=== PATIENT | female | born 1990 | race Caucasian/White ===

== ENCOUNTER 2018-06-19 11:52 | Emergency (ER) | payer MEDICAID ==
[~2018-06-19] VITALS: Ht 149.9 cm; Wt 112.9 kg
[2018-06-19 12:01] VITALS: BP_SYST 150
[2018-06-19] MEDS ORDERED: NACL 0.9% 1,000 ML IV ONE (12:17)
[2018-06-19] MEDS ORDERED: ONDANSETRON HCL 4 MG/2 ML VIAL IVP ONE (12:30)
--- NOTE | 2018-06-19 12:40 | NUR ---
Patient to ER bed 7 to gown for evaluation. Side rails up. Report given to Saida MO.
--- NOTE | 2018-06-19 12:42 | NUR ---
Pt AAOx4, 8 weeks , ambulated into ED c/o vaginal spotting and cramping x 2 days. Pt denies V/D/dysuria. Skin pink dry and warm, breathing even and unlabored. No other injuries/complaints per pt/noted. Will continue to monitor.
[2018-06-19 12:49] LABS: BILIRUBIN,URINE NEGATIVE (NEGATIVE); CLARITY/URINE CLEAR (CLEAR); COLOR,URINE YELLOW (YELLOW); GLUCOSE,URINE NEGATIVE (NEGATIVE); KETONES,URINE TRACE (NEGATIVE); LEUKOCYTE ESTERASE ,URINE NEGATIVE (NEGATIVE); NITRITE, URINE NEGATIVE (NEGATIVE); PH,URINE 6.5 (5.0-8.0); PROTEIN URINE NEGATIVE (NEGATIVE); UROBILINOGEN,URINE 0.2 (0.2-1.0)
--- NOTE | 2018-06-19 12:50 | NUR ---
ER Dr. CAPONE at bedside examining patient.
--- NOTE | 2018-06-19 12:54 | NUR ---
Went to see patient, not in room. Pt has US order. Will monitor when in room
[2018-06-19 13:05] LABS: CALCIUM 9.3 mg/dL (8.4-11.0); CREATININE 0.72 mg/dL (0.55-1.30); POTASSIUM 3.8 mmol/L (3.5-5.1)
[2018-06-19 13:06] LABS: PROTHROMBIN TIME 9.9 SECS (9.5-12.5)
--- NOTE | 2018-06-19 13:10 | NUR ---
Medication administered. Pt tolerated well. No adverse reactions noted.
[2018-06-19 13:15] LABS: EOSINOPHILS % (AUTO) 1.3 % (0.0-4.0); HEMATOCRIT 40.3 % (36-48); HEMOGLOBIN 13.5 g/dL (12.0-16.0); LYMPHOCYTES % (AUTO) 20.6 % (20.5-51.5); MEAN CORPUSCULAR HEMOGLOBIN 30 pg (27-31); MEAN CORPUSCULAR HGB CONC 33 % (32-36); MEAN CORPUSCULAR VOLUME 89 fL (79.0-98.0); MONOCYTES % (AUTO) 3.4 % (1.7-9.3); NEUTROPHILS % (AUTO) 73.2 % (40.0-70.0); PLATELET COUNT (AUTO) 343 K/uL (130-430); RED BLOOD CELL COUNT(AUTO) 4.53 MIL/uL (4.2-6.2); RED CELL DISTRIBUTION WIDTH 13.4 % (9.0-15.0); WHITE BLOOD COUNT (AUTO) 10.3 K/uL (4.8-10.8)
[2018-06-19 13:16] LABS: BASOPHILS # (AUTO) 0.2 K/uL (0.0-0.2); BASOPHILS % (AUTO) 1.5 % (0.0-2.0); EOSINOPHILS # (AUTO) 0.1 K/uL (0.0-0.4); LYMPHOCYTES # (AUTO) 2.1 K/uL (1.0-5.5); MONOCYTES # (AUTO) 0.4 K/uL (0.0-1.0); NEUTROPHILS # (AUTO) 7.5 K/uL (1.8-7.7)
[2018-06-19 13:31] LABS: ALBUMIN 3.4 g/dL (3.4-4.8); TOTAL BILIRUBIN 0.3 mg/dL (0.0-1.0)
[2018-06-19 14:04] VITALS: BP_SYST 139
--- NOTE | 2018-06-19 14:05 | NUR ---
Patient given written and verbal discharge instructions and verbalizes understanding. ER MD CAPONE discussed with patient the results and treatment provided. Patient in stable condition. ID arm band removed. IV catheter removed intact and dressing applied, no active bleeding. NO Rx given. Patient educated on pain management and to follow up with PMD. Pain Scale 0. Opportunity for questions provided and answered. Medication side effect fact sheet provided.
[2018-06-19 14:07] LABS: BLOOD, URINE TRACE (NEGATIVE)
[2018-06-19 15:24] LABS: BACTERIA,URINE FEW /HPF (None Seen); WBC,URINE 0-3 /HPF (0-3)
== END 2018-06-19 14:04 | disposition home or self-care (01) ==
LOC: SED 11:52
DX: O20.0 Threatened abortion (principal); R03.0 Elevated blood-pressure reading, without diagnosis of hypertension; Z3A.08 8 weeks gestation of pregnancy
CPT/HCPCS: 36415; 76801; 76817; 80053; 81000; 81025; 83605; 83690; 84702; 85025; 85610; 85730; 86900; 86901; 87040; 96374; 99284; J2405; J7030

== ENCOUNTER 2020-02-22 14:23 | Emergency (ER) | payer MEDICAID ==
[~2020-02-22] VITALS: Ht 149.9 cm; Wt 106.6 kg
[2020-02-22 14:45] VITALS: BP_SYST 134
[2020-02-22] MEDS ORDERED: ACETAMINOPHEN 500 MG TABLET PO ONE (14:45)
--- NOTE | 2020-02-22 14:45 | NUR ---
Patient to ER bed 7 to gown for evaluation. Side rails up.
--- NOTE | 2020-02-22 14:50 | NUR ---
Pt came to ER for vag bleed stating she had a miscarriage yesterday. She says she saw her OB yesterday who told her to come into the ER. Pt reports low abd and low back pain 10/28 intermittent 03/30.
--- NOTE | 2020-02-22 14:55 | NUR ---
ER at bedside examining patient.
[2020-02-22 15:08] LABS: BASOPHILS # (AUTO) 0.1 K/uL (0.0-0.2); BASOPHILS % (AUTO) 0.8 % (0.0-2.0); EOSINOPHILS # (AUTO) 0.2 K/uL (0.0-0.4); HEMATOCRIT 30.4 % (36-48); HEMOGLOBIN 9.7 g/dL (12.0-16.0); LYMPHOCYTES # (AUTO) 2.3 K/uL (1.0-5.5); LYMPHOCYTES % (AUTO) 22.5 % (20.5-51.5); MEAN CORPUSCULAR HEMOGLOBIN 23 pg (27-31); MEAN CORPUSCULAR HGB CONC 32 % (32-36); MEAN CORPUSCULAR VOLUME 72 fL (79.0-98.0); MONOCYTES # (AUTO) 0.5 K/uL (0.0-1.0); MONOCYTES % (AUTO) 4.6 % (1.7-9.3); NEUTROPHILS % (AUTO) 70.1 % (40.0-70.0); PLATELET COUNT (AUTO) 398 K/uL (130-430); RED BLOOD CELL COUNT(AUTO) 4.21 MIL/uL (4.2-6.2); RED CELL DISTRIBUTION WIDTH 24.4 % (9.0-15.0)
[2020-02-22 15:18] LABS: CALCIUM 8.8 mg/dL (8.4-11.0); CREATININE 0.73 mg/dL (0.55-1.30)
--- NOTE | 2020-02-22 15:24 | NUR ---
Patient transported to radiology via wheelchair, accompanied by staff.
[2020-02-22] MEDS ORDERED: HYDROcodone/ACETAMIN 5-325 MG TAB (NORCO/ VICODIN) PO ONE (15:30)
--- NOTE | 2020-02-22 15:52 | NUR ---
PT MEDICATED FOR PAIN PER MD ORDER, TOLERATED WELL
[2020-02-22 16:37] VITALS: BP_SYST 134
--- NOTE | 2020-02-22 16:40 | NUR ---
Patient given written and verbal discharge instructions and verbalizes understanding. ER MD discussed with patient the results and treatment provided. Patient in stable condition. ID arm band removed. Rx of NORCO given. Patient educated on pain management and to follow up with PMD. Pain Scale 0/10. Opportunity for questions provided and answered. Medication side effect fact sheet provided.
== END 2020-02-22 16:40 | disposition home or self-care (01) ==
LOC: SED 14:23
DX: O20.0 Threatened abortion (principal); Z3A.01 Less than 8 weeks gestation of pregnancy
CPT/HCPCS: 36415; 76801; 76817; 80048; 81002; 84702-TC; 85025; 99284